=== PATIENT | male | born 1990 | race Caucasian/White ===

== ENCOUNTER 2018-05-08 17:46 | Inpatient (IN) ==
[2018-05-08] MEDS ORDERED: methylPREDNISolone SOD SUC 125 MG/2 ML VIAL IV STA (18:25)
[2018-05-08] MEDS ORDERED: cefTRIAXone 1,000 MG in SODIUM CHLORIDE 0.9% 100 ML IV STA (18:25)
[2018-05-08] MEDS ORDERED: ONDANSETRON 4 MG/2 ML VIAL IV STA (18:25)
[2018-05-08] MEDS ORDERED: SODIUM CHLORIDE 0.9% 500 ML IV STA (18:25)
[2018-05-08] MEDS ORDERED: ALBUTEROL NEB SOLN 5 MG/ML 20 ML/BOTTLE RESP TX SCH (18:30)
[2018-05-08 18:42] LABS: Basophils % 0.1 % (0.0-0.8); Eosinophils % 0.1 % (0.00-10.9); Hemoglobin 13.2 GM/DL (14.0-18.0); Immature Granulocytes % 0.8 %; Immature Granulocytes Absolute 0.11 #; Lymphocytes # 0.6 10*3/uL (1.4-4.0); Lymphocytes % 4.5 % (21.2-54.2); Mean Corpuscular HGB Conc 32.2 GM/DL (32-36); Mean Corpuscular Hemoglobin 29 PG (27-34); Mean Corpuscular Volume 89.1 FL (87-102); Mean Platelet Volume 11.5 FL (9.6-12.0); Monocytes # 0.5 10*3/uL (0.11-0.8); Monocytes % 3.3 % (1.7-12.7); Neutrophils # 12.9 10*3/uL (1.4-7.4); Neutrophils % 91.2 % (38.7-73.9); Platelet Count 285 T/CUMM (130-400); Red Cell Distribution Width 12.8 % (9.3-17.3); White Blood Count 14.1 T/CUMM (4-12)
[2018-05-08 18:54] LABS: ABG Base Excess 4.4 MMOL/L (-2.5-2.5); ABG HCO3 28.3 MMOL/L (20-26); ABG Oxygen Saturation 95.8 % (95-100); ABG PCO2 38.3 MM HG (35-48); ABG PH 7.473 (7.35-7.45); ABG PO2 76.1 MM HG (80-95); ABG TCO2 24.2 MMOL/L (23-27)
[2018-05-08 18:57] LABS: INR 1.1
[2018-05-08 19:04] LABS: Bilirubin,Total 0.6 MG/DL (0.2-1.0); Calcium 8.8 MG/DL (8.5-10.1); Osmolality,Calculated 271.8 MOS/KG (273-304); Potassium 4.4 MMOL/L (3.5-5.1); Total Protein 7.4 G/DL (6.4-8.3)
[2018-05-08] MEDS ORDERED: MAGNESIUM SULF RIDER 2 GM in PREMIX 1 EACH IV STA (19:34)
[2018-05-08] MEDS ORDERED: PIPERACILLIN/TAZOBACTAM 3,375 MG in SODIUM CHLORIDE 0.9% 100 ML IV STA (19:35)
[2018-05-08 19:59] LABS: Lymphocytes 3 % (20-55); Platelet Estimate Normal; Segmented Neutrophils 96 % (50-85)
[2018-05-08 20:00] LABS: Anisocytosis Slight; Hypochromasia Slight
[2018-05-08 20:01] LABS: Total Cells Counted 100
[2018-05-08] MEDS ORDERED: MORPHINE 4 MG/1 ML VIAL IV PRN (23:38)
[2018-05-08] MEDS ORDERED: ONDANSETRON 4 MG/2 ML VIAL IV PRN (23:38)
[2018-05-08] MEDS ORDERED: ALBUTEROL 2.5 MG/3 ML NEB RESP TX PRN (23:38)
[2018-05-08] MEDS: ALBUTEROL/IPRATROPIUM 3 ML NEB RESP TX SCH (23:47)
[2018-05-08] MEDS: SODIUM CHLORIDE 0.9% 1,000 ML IV SCH (23:50)
[2018-05-09] MEDS ORDERED: CEFTAROLINE 600 MG in SODIUM CHLORIDE 0.9% 100 ML IV SCH
[2018-05-09 00:26] LABS: Hematocrit 40.2 VOL% (42.0-52.0); Hemoglobin 12.9 GM/DL (14.0-18.0); Immature Granulocytes % 0.8 %; Immature Granulocytes Absolute 0.06 #; Lymphocytes # 0.3 10*3/uL (1.4-4.0); Lymphocytes % 4.3 % (21.2-54.2); Mean Corpuscular HGB Conc 32.1 GM/DL (32-36); Mean Corpuscular Hemoglobin 29 PG (27-34); Mean Corpuscular Volume 90.3 FL (87-102); Mean Platelet Volume 11.3 FL (9.6-12.0); Monocytes # 0.1 10*3/uL (0.11-0.8); Monocytes % 0.8 % (1.7-12.7); Neutrophils # 7.3 10*3/uL (1.4-7.4); Neutrophils % 94.1 % (38.7-73.9); Platelet Count 278 T/CUMM (130-400); Red Blood Count 4.45 MC/CUMM (3.8-5.5); Red Cell Distribution Width 12.9 % (9.3-17.3); White Blood Count 7.7 T/CUMM (4-12)
[2018-05-09 01:03] LABS: Lymphocytes 4 % (20-55); Segmented Neutrophils 95 % (50-85)
[2018-05-09 01:06] LABS: Platelet Estimate Adequate; Total Cells Counted 100
[2018-05-09] MEDS: methylPREDNISolone SOD SUC 40 MG/1 ML VIAL IV SCH ×5 (01:10→23:48)
[2018-05-09 01:42] LABS: Risk Ratio 5.57; VLDL CHOLESTEROL 12.2 MG/DL
[2018-05-09 03:10] LABS: Alanine Aminotransferase 13 U/L (16-61); Albumin 2.5 G/DL (3.4-5.0); Alkaline Phosphatase 47 U/L (45-117); Aspartate Amino Transferase 12 U/L (0-37); Bilirubin,Total < 0.39 MG/DL (0.2-1.0); Blood Urea Nitrogen 7 MG/DL (7-18); Calcium 8.6 MG/DL (8.5-10.1); Glucose 298 MG/DL (74-106); Osmolality,Calculated 287.4 MOS/KG (273-304); Potassium 3.9 MMOL/L (3.5-5.1); Sodium 140 MMOL/L (136-145); Total Protein 7.4 G/DL (6.4-8.3)
[2018-05-09 03:20] LABS: Apearance,Urine CLEAR (Clear); Bilirubin,Urine Negative (Negative); Blood, Urine Negative (Negative); Glucose,Urine (UA) 150 mg/dL (Negative); Ketones,Urine 20 mg/dL (Negative); Mucus,Urine Occasional /LPF (Occasional); Nitrite,Urine Negative (Negative); Protein,Urine Negative; RBC,Urine 1 /HPF (0-4); Urine Color Yellow (Yellow); Urine Specific Gravity 1.013 (1.001-1.035); Urine Urobilinogen < 2.0 EU/DL (0.2-1.0); WBC,Urine <1 /HPF (0-6)
[2018-05-09] MEDS: ALBUTEROL/IPRATROPIUM 3 ML NEB RESP TX SCH ×6 (03:38→23:15)
[2018-05-09 03:41] LABS: Barbiturates Screen,Urine Negative (Negative); Benzodiazepines Screen,Urine Negative (Negative); Cannabinoid Screen,Urine Positive (Negative); Opiate Screen,Urine Positive (Negative); Phencyclidine Screen,Urine Negative (Negative)
[2018-05-09] MEDS: PIPERACILLIN/TAZOBACTAM 3,375 MG in SODIUM CHLORIDE 0.9% 100 ML IV SCH ×3 (06:01→21:03)
[2018-05-09] MEDS ORDERED: INFLUENZA VIRUS VACCINE 0.5 ML SYRINGE IM ONE (09:00)
[2018-05-09] MEDS: NEBIVOLOL 5 MG TABLET PO SCH (09:06)
[2018-05-09] MEDS: PANTOPRAZOLE 40 MG VIAL IV SCH (09:07)
[2018-05-09] MEDS: ENOXAPARIN 40 MG/0.4 ML SYRINGE SUBCUT SCH (09:07)
[2018-05-09] MEDS: FLUTICASONE 50 MCG NASAL SPRAY 16 GM BOTTLE BOTH NARES SCH (09:11)
[2018-05-09] MEDS: Fluticasone/Vilanterol [Breo Ellipta 200-25 Mcg Inh] INH SCH (09:11)
[2018-05-09] MEDS: DOCUSATE SODIUM 100 MG CAPSULE PO SCH ×2 (09:11→21:03)
[2018-05-09] MEDS ORDERED: VANCOMYCIN INJ 1,500 MG in SODIUM CHLORIDE 0.9% 500 ML IV ONE (12:00)
[2018-05-09] MEDS: SODIUM CHLORIDE 0.9% 1,000 ML IV SCH ×2 (12:56→15:56)
[2018-05-09] MEDS: ALPRAZolam 0.25 MG TABLET PO PRN ×2 (14:34→21:03)
[2018-05-09] MEDS: ACETAMINOPHEN 325 MG TABLET PO PRN (16:48)
[2018-05-09] MEDS: CETIRIZINE 10 MG TABLET PO SCH (21:03)
[2018-05-09] MEDS: VANCOMYCIN INJ 1,250 MG in SODIUM CHLORIDE 0.9% 250 ML IV SCH (23:47)
[2018-05-10] MEDS: ALBUTEROL/IPRATROPIUM 3 ML NEB RESP TX SCH ×6 (03:17→23:22)
[2018-05-10] MEDS: ACETAMINOPHEN 325 MG TABLET PO PRN ×2 (04:23→23:40)
[2018-05-10 05:27] LABS: Basophils % 0.1 % (0.0-0.8); Hematocrit 39.4 VOL% (42.0-52.0); Hemoglobin 12.7 GM/DL (14.0-18.0); Immature Granulocytes % 1.2 %; Immature Granulocytes Absolute 0.11 #; Lymphocytes # 0.7 10*3/uL (1.4-4.0); Lymphocytes % 7.4 % (21.2-54.2); Mean Corpuscular HGB Conc 32.2 GM/DL (32-36); Mean Corpuscular Hemoglobin 29 PG (27-34); Mean Corpuscular Volume 90.4 FL (87-102); Mean Platelet Volume 11.2 FL (9.6-12.0); Monocytes # 0.4 10*3/uL (0.11-0.8); Monocytes % 4.8 % (1.7-12.7); Neutrophils % 86.5 % (38.7-73.9); Platelet Count 284 T/CUMM (130-400); Red Blood Count 4.36 MC/CUMM (3.8-5.5); Red Cell Distribution Width 12.8 % (9.3-17.3); White Blood Count 9.2 T/CUMM (4-12)
[2018-05-10] MEDS: PIPERACILLIN/TAZOBACTAM 3,375 MG in SODIUM CHLORIDE 0.9% 100 ML IV SCH ×3 (05:27→21:29)
[2018-05-10] MEDS: SODIUM CHLORIDE 0.9% 1,000 ML IV SCH ×2 (05:29→19:40)
[2018-05-10] MEDS: methylPREDNISolone SOD SUC 40 MG/1 ML VIAL IV SCH ×4 (05:29→23:24)
[2018-05-10 05:47] LABS: Calcium 8.6 MG/DL (8.5-10.1); Osmolality,Calculated 281.1 MOS/KG (273-304); Potassium 3.8 MMOL/L (3.5-5.1)
[2018-05-10] MEDS: PANTOPRAZOLE 40 MG VIAL IV SCH (08:54)
[2018-05-10] MEDS: NEBIVOLOL 5 MG TABLET PO SCH (08:54)
[2018-05-10] MEDS: ALPRAZolam 0.25 MG TABLET PO PRN ×2 (08:54→21:28)
[2018-05-10] MEDS: ENOXAPARIN 40 MG/0.4 ML SYRINGE SUBCUT SCH (08:54)
[2018-05-10] MEDS: DOCUSATE SODIUM 100 MG CAPSULE PO SCH ×2 (08:55→20:46)
[2018-05-10] MEDS: FLUTICASONE 50 MCG NASAL SPRAY 16 GM BOTTLE BOTH NARES SCH (08:57)
[2018-05-10] MEDS: Fluticasone/Vilanterol [Breo Ellipta 200-25 Mcg Inh] INH SCH (08:57)
[2018-05-10] MEDS: VANCOMYCIN INJ 1,250 MG in SODIUM CHLORIDE 0.9% 250 ML IV SCH ×2 (12:44→23:24)
[2018-05-10] MEDS: CETIRIZINE 10 MG TABLET PO SCH (21:28)
[2018-05-11] MEDS ORDERED: PHENOL 1.4% THROAT SPRAY 177 ML BOTTLE PO PRN (00:20)
[2018-05-11] MEDS: BENZONATATE 100 MG CAPSULE PO PRN ×2 (00:42→21:37)
[2018-05-11] MEDS: SODIUM CHLORIDE 0.9% 1,000 ML IV SCH ×2 (01:12→09:30)
[2018-05-11] MEDS: ALBUTEROL/IPRATROPIUM 3 ML NEB RESP TX SCH ×6 (02:28→23:11)
[2018-05-11 05:15] LABS: Basophils % 0.1 % (0.0-0.8); Hematocrit 37.6 VOL% (42.0-52.0); Hemoglobin 11.9 GM/DL (14.0-18.0); Immature Granulocytes % 1.3 %; Immature Granulocytes Absolute 0.18 #; Lymphocytes # 0.7 10*3/uL (1.4-4.0); Mean Corpuscular HGB Conc 31.6 GM/DL (32-36); Mean Corpuscular Hemoglobin 29 PG (27-34); Mean Platelet Volume 11.6 FL (9.6-12.0); Monocytes # 0.8 10*3/uL (0.11-0.8); Monocytes % 5.6 % (1.7-12.7); Neutrophils # 11.8 10*3/uL (1.4-7.4); Platelet Count 276 T/CUMM (130-400); Red Blood Count 4.18 MC/CUMM (3.8-5.5); Red Cell Distribution Width 12.8 % (9.3-17.3); White Blood Count 13.4 T/CUMM (4-12)
[2018-05-11 05:33] LABS: Calcium 8.1 MG/DL (8.5-10.1); Osmolality,Calculated 278.4 MOS/KG (273-304); Potassium 3.8 MMOL/L (3.5-5.1)
[2018-05-11] MEDS: methylPREDNISolone SOD SUC 40 MG/1 ML VIAL IV SCH ×3 (06:15→19:11)
[2018-05-11] MEDS: PIPERACILLIN/TAZOBACTAM 3,375 MG in SODIUM CHLORIDE 0.9% 100 ML IV SCH ×2 (06:16→14:19)
[2018-05-11] MEDS: ENOXAPARIN 40 MG/0.4 ML SYRINGE SUBCUT SCH (09:23)
[2018-05-11] MEDS: ALPRAZolam 0.25 MG TABLET PO PRN ×2 (09:24→21:37)
[2018-05-11] MEDS: NEBIVOLOL 5 MG TABLET PO SCH (09:24)
[2018-05-11] MEDS: PANTOPRAZOLE 40 MG VIAL IV SCH (09:24)
[2018-05-11] MEDS: FLUTICASONE 50 MCG NASAL SPRAY 16 GM BOTTLE BOTH NARES SCH (09:25)
[2018-05-11] MEDS: DOCUSATE SODIUM 100 MG CAPSULE PO SCH (09:25)
[2018-05-11] MEDS: Fluticasone/Vilanterol [Breo Ellipta 200-25 Mcg Inh] INH SCH (09:25)
[2018-05-11] MEDS: VANCOMYCIN INJ 1,250 MG in SODIUM CHLORIDE 0.9% 250 ML IV SCH ×2 (13:10→21:29)
[2018-05-11 20:40] LABS: Mycoplasma pneumoniae PCR Negative; Specimen Source SPUTUM
[2018-05-11] MEDS: CETIRIZINE 10 MG TABLET PO SCH (21:40)
[2018-05-12] MEDS: PIPERACILLIN/TAZOBACTAM 3,375 MG in SODIUM CHLORIDE 0.9% 100 ML IV SCH ×3 (01:16→18:37)
[2018-05-12] MEDS: ALBUTEROL/IPRATROPIUM 3 ML NEB RESP TX SCH ×5 (03:21→19:37)
[2018-05-12] MEDS: methylPREDNISolone SOD SUC 40 MG/1 ML VIAL IV SCH ×4 (04:03→14:02)
[2018-05-12] MEDS: VANCOMYCIN INJ 1,250 MG in SODIUM CHLORIDE 0.9% 250 ML IV SCH ×2 (04:04→14:03)
[2018-05-12 06:00] LABS: Basophils % 0.1 % (0.0-0.8); Eosinophils % 0.2 % (0.00-10.9); Hematocrit 37.7 VOL% (42.0-52.0); Hemoglobin 12.2 GM/DL (14.0-18.0); Immature Granulocytes % 2.1 %; Immature Granulocytes Absolute 0.23 #; Lymphocytes # 0.9 10*3/uL (1.4-4.0); Lymphocytes % 7.9 % (21.2-54.2); Mean Corpuscular HGB Conc 32.4 GM/DL (32-36); Mean Corpuscular Hemoglobin 29 PG (27-34); Mean Corpuscular Volume 88.9 FL (87-102); Monocytes # 0.9 10*3/uL (0.11-0.8); Monocytes % 8.3 % (1.7-12.7); Neutrophils # 8.9 10*3/uL (1.4-7.4); Neutrophils % 81.4 % (38.7-73.9); Platelet Count 276 T/CUMM (130-400); Red Blood Count 4.24 MC/CUMM (3.8-5.5); Red Cell Distribution Width 12.9 % (9.3-17.3)
[2018-05-12 06:50] LABS: Calcium 8.2 MG/DL (8.5-10.1); Osmolality,Calculated 275.5 MOS/KG (273-304); Potassium 3.6 MMOL/L (3.5-5.1)
[2018-05-12] MEDS: SODIUM CHLORIDE 0.9% 1,000 ML IV SCH (07:44)
[2018-05-12 07:56] LABS: Pneumocystis jiroveci Result Negative (Negative); Pneumocystis jiroveci Source SPUTUM
[2018-05-12] MEDS: ENOXAPARIN 40 MG/0.4 ML SYRINGE SUBCUT SCH (09:27)
[2018-05-12] MEDS: ALPRAZolam 0.25 MG TABLET PO PRN ×2 (09:27→21:59)
[2018-05-12] MEDS: NEBIVOLOL 5 MG TABLET PO SCH (09:27)
[2018-05-12] MEDS: PANTOPRAZOLE 40 MG VIAL IV SCH (09:27)
[2018-05-12] MEDS: FLUTICASONE 50 MCG NASAL SPRAY 16 GM BOTTLE BOTH NARES SCH (09:28)
[2018-05-12] MEDS: Fluticasone/Vilanterol [Breo Ellipta 200-25 Mcg Inh] INH SCH (09:28)
[2018-05-12 09:43] LABS: HIV Antigen/Antibody Result Reactive (Nonreactive)
[2018-05-12] MEDS ORDERED: hydrALAZINE 20 MG/1 ML VIAL IV PRN (13:15)
[2018-05-12] MEDS: CETIRIZINE 10 MG TABLET PO SCH (21:59)
[2018-05-13] MEDS: ALBUTEROL/IPRATROPIUM 3 ML NEB RESP TX SCH ×7 (00:19→23:10)
[2018-05-13] MEDS: VANCOMYCIN INJ 1,250 MG in SODIUM CHLORIDE 0.9% 250 ML IV SCH ×3 (01:17→18:24)
[2018-05-13] MEDS: methylPREDNISolone SOD SUC 40 MG/1 ML VIAL IV SCH ×2 (01:22→16:45)
[2018-05-13] MEDS: PIPERACILLIN/TAZOBACTAM 3,375 MG in SODIUM CHLORIDE 0.9% 100 ML IV SCH ×4 (03:30→22:03)
[2018-05-13] MEDS: BENZONATATE 100 MG CAPSULE PO PRN ×2 (05:56→22:10)
[2018-05-13] MEDS: FLUTICASONE 50 MCG NASAL SPRAY 16 GM BOTTLE BOTH NARES SCH (09:35)
[2018-05-13] MEDS: NEBIVOLOL 5 MG TABLET PO SCH (09:36)
[2018-05-13] MEDS: ENOXAPARIN 40 MG/0.4 ML SYRINGE SUBCUT SCH (09:36)
[2018-05-13] MEDS: Fluticasone/Vilanterol [Breo Ellipta 200-25 Mcg Inh] INH SCH (09:36)
[2018-05-13] MEDS: PANTOPRAZOLE 40 MG VIAL IV SCH (09:36)
[2018-05-13] MEDS: ALPRAZolam 0.25 MG TABLET PO PRN (09:39)
[2018-05-13 14:39] LABS: Hepatitis A Ab IgM Quant 0.24 Index; Hepatitis A Ab IgM Result Negative (Negative); Hepatitis B Core IgM Quant 0.16 Index; Hepatitis B Core IgM Result Negative (Negative); Hepatitis B Surface Ag Quant < 0.10 Index; Hepatitis B Surface Ag Result Negative (Negative); Hepatitis C Virus Ab Quant 0.05 Index; Hepatitis C Virus Ab Result Negative (Negative)
[2018-05-13 16:10] LABS: Alternaria tenuis/alternat IgG 3.6 mcg/mL (<12.0); Aspergillus fumigatus IgG 53.4 mcg/mL (<46.0); Aureobasidium pullulans IgG 2.3 mcg/mL (<18.0); Micropolyspora faeni IgG <2.0 mcg/mL (<5.0); Penicillium Chrysogenum IgG 29.9 mcg/mL (<22.0); Phoma betae IgG 4.6 mcg/mL (<8.0); Thermoactinomyces vulgaris IgG 2.1 mcg/mL (<13.0)
[2018-05-13] MEDS: ACETAMINOPHEN 325 MG TABLET PO PRN (19:50)
[2018-05-13] MEDS: CETIRIZINE 10 MG TABLET PO SCH (22:03)
[2018-05-13] MEDS: busPIRone 5 MG TABLET PO SCH (22:03)
[2018-05-14] MEDS: methylPREDNISolone SOD SUC 40 MG/1 ML VIAL IV SCH ×2 (02:13→15:16)
[2018-05-14] MEDS: VANCOMYCIN INJ 1,250 MG in SODIUM CHLORIDE 0.9% 250 ML IV SCH ×3 (02:14→17:52)
[2018-05-14] MEDS: ALBUTEROL/IPRATROPIUM 3 ML NEB RESP TX SCH ×6 (03:20→23:09)
[2018-05-14] MEDS: PIPERACILLIN/TAZOBACTAM 3,375 MG in SODIUM CHLORIDE 0.9% 100 ML IV SCH ×3 (05:18→22:38)
[2018-05-14] MEDS: busPIRone 5 MG TABLET PO SCH ×3 (09:55→22:38)
[2018-05-14] MEDS: NEBIVOLOL 5 MG TABLET PO SCH (09:55)
[2018-05-14] MEDS: PANTOPRAZOLE 40 MG VIAL IV SCH (09:55)
[2018-05-14] MEDS: ENOXAPARIN 40 MG/0.4 ML SYRINGE SUBCUT SCH (09:56)
[2018-05-14] MEDS: Fluticasone/Vilanterol [Breo Ellipta 200-25 Mcg Inh] INH SCH (09:56)
[2018-05-14] MEDS: FLUTICASONE 50 MCG NASAL SPRAY 16 GM BOTTLE BOTH NARES SCH (09:56)
[2018-05-14] MEDS ORDERED: diphenhydrAMINE 50 MG/1 ML VIAL IV PRN (10:59)
[2018-05-14] MEDS ORDERED: SULFAMETHOX/TRIMETHOPRIM 800-160 MG TABLET PO ONE (11:00)
[2018-05-14] MEDS ORDERED: methylPREDNISolone SOD SUC 125 MG/2 ML VIAL IV PRN (11:04)
[2018-05-14] MEDS ORDERED: EPINEPHrine 1 MG/ML VIAL ONE (12:17)
[2018-05-14] MEDS: BENZONATATE 100 MG CAPSULE PO PRN ×2 (15:18→22:37)
[2018-05-14] MEDS: CETIRIZINE 10 MG TABLET PO SCH (22:37)
[2018-05-14] MEDS: SULFAMETHOX/TRIMETHOPRIM 800-160 MG TABLET PO SCH (22:40)
[2018-05-15] MEDS: ALBUTEROL/IPRATROPIUM 3 ML NEB RESP TX SCH ×5 (03:30→20:45)
[2018-05-15] MEDS: VANCOMYCIN INJ 1,250 MG in SODIUM CHLORIDE 0.9% 250 ML IV SCH ×2 (03:33→11:42)
[2018-05-15] MEDS: SULFAMETHOX/TRIMETHOPRIM 800-160 MG TABLET PO SCH ×3 (06:58→21:08)
[2018-05-15] MEDS: PIPERACILLIN/TAZOBACTAM 3,375 MG in SODIUM CHLORIDE 0.9% 100 ML IV SCH ×3 (06:58→21:09)
[2018-05-15] MEDS: predniSONE 20 MG TABLET PO SCH (08:36)
[2018-05-15] MEDS: NEBIVOLOL 5 MG TABLET PO SCH (08:37)
[2018-05-15] MEDS: busPIRone 5 MG TABLET PO SCH ×3 (08:37→21:08)
[2018-05-15] MEDS: PANTOPRAZOLE 40 MG VIAL IV SCH (08:38)
[2018-05-15] MEDS: FLUTICASONE 50 MCG NASAL SPRAY 16 GM BOTTLE BOTH NARES SCH (08:39)
[2018-05-15] MEDS: ACETAMINOPHEN 325 MG TABLET PO PRN (08:45)
[2018-05-15] MEDS: BENZONATATE 100 MG CAPSULE PO PRN (08:45)
[2018-05-15] MEDS: ENOXAPARIN 40 MG/0.4 ML SYRINGE SUBCUT SCH (08:48)
[2018-05-15] MEDS: Fluticasone/Vilanterol [Breo Ellipta 200-25 Mcg Inh] INH SCH (09:45)
[2018-05-15] MEDS: ALPRAZolam 0.25 MG TABLET PO PRN ×2 (14:26→21:08)
[2018-05-15 15:36] LABS: TB2 Ag Minus Result 0 IU/mL
[2018-05-15 15:51] LABS: % CD4 (T Cells) 1 % (32-64); % CD8 (T Cells) 42 % (18-40); 4/8 Ratio 0 (>=0.9)
[2018-05-15 19:21] LABS: HIV 1 RNA Quant Reflex to Geno 85000 copies/mL (Undetected)
[2018-05-15] MEDS: CETIRIZINE 10 MG TABLET PO SCH (21:08)
[2018-05-16] MEDS: ALBUTEROL/IPRATROPIUM 3 ML NEB RESP TX SCH ×7 (01:29→23:55)
[2018-05-16 03:51] LABS: Toxoplasma IgG Value < 3 IU/mL
[2018-05-16 05:44] LABS: Basophils % 0.2 % (0.0-0.8); Eosinophils # 0.4 10*3/uL (0.0-0.87); Eosinophils % 2.2 % (0.00-10.9); Hematocrit 40.3 VOL% (42.0-52.0); Immature Granulocytes % 2.7 %; Immature Granulocytes Absolute 0.46 #; Lymphocytes # 1.3 10*3/uL (1.4-4.0); Lymphocytes % 7.3 % (21.2-54.2); Mean Corpuscular HGB Conc 32.3 GM/DL (32-36); Mean Corpuscular Hemoglobin 29 PG (27-34); Mean Platelet Volume 11.1 FL (9.6-12.0); Monocytes # 1.2 10*3/uL (0.11-0.8); Monocytes % 7.2 % (1.7-12.7); Neutrophils # 13.9 10*3/uL (1.4-7.4); Neutrophils % 80.4 % (38.7-73.9); Platelet Count 281 T/CUMM (130-400); Red Blood Count 4.48 MC/CUMM (3.8-5.5); Red Cell Distribution Width 14.3 % (9.3-17.3); White Blood Count 17.3 T/CUMM (4-12)
[2018-05-16 06:07] LABS: Calcium 8.2 MG/DL (8.5-10.1); Osmolality,Calculated 269.1 MOS/KG (273-304); Potassium 3.7 MMOL/L (3.5-5.1)
[2018-05-16] MEDS: SULFAMETHOX/TRIMETHOPRIM 800-160 MG TABLET PO SCH ×3 (06:20→21:00)
[2018-05-16] MEDS: PIPERACILLIN/TAZOBACTAM 3,375 MG in SODIUM CHLORIDE 0.9% 100 ML IV SCH ×2 (06:20→14:43)
[2018-05-16] MEDS: PANTOPRAZOLE 40 MG VIAL IV SCH (08:43)
[2018-05-16] MEDS: NEBIVOLOL 5 MG TABLET PO SCH (08:44)
[2018-05-16] MEDS: predniSONE 20 MG TABLET PO SCH (08:44)
[2018-05-16] MEDS: busPIRone 5 MG TABLET PO SCH ×3 (08:44→21:00)
[2018-05-16] MEDS: FLUTICASONE 50 MCG NASAL SPRAY 16 GM BOTTLE BOTH NARES SCH (08:51)
[2018-05-16] MEDS: ENOXAPARIN 40 MG/0.4 ML SYRINGE SUBCUT SCH (08:52)
[2018-05-16] MEDS: Fluticasone/Vilanterol [Breo Ellipta 200-25 Mcg Inh] INH SCH (08:52)
[2018-05-16] MEDS ORDERED: AZITHROMYCIN 250 MG TABLET PO SCH (09:00)
[2018-05-16] MEDS: ALPRAZolam 0.25 MG TABLET PO PRN ×2 (14:47→21:19)
[2018-05-16] MEDS: CETIRIZINE 10 MG TABLET PO SCH (21:00)
[2018-05-17] MEDS: ALBUTEROL/IPRATROPIUM 3 ML NEB RESP TX SCH ×6 (03:43→23:30)
[2018-05-17] MEDS: SULFAMETHOX/TRIMETHOPRIM 800-160 MG TABLET PO SCH ×3 (05:49→21:46)
[2018-05-17] MEDS: ENOXAPARIN 40 MG/0.4 ML SYRINGE SUBCUT SCH (08:01)
[2018-05-17] MEDS: PANTOPRAZOLE 40 MG VIAL IV SCH (08:04)
[2018-05-17] MEDS: predniSONE 20 MG TABLET PO SCH (08:05)
[2018-05-17] MEDS: NEBIVOLOL 5 MG TABLET PO SCH (08:05)
[2018-05-17] MEDS: busPIRone 5 MG TABLET PO SCH ×3 (08:11→21:47)
[2018-05-17] MEDS: ACETAMINOPHEN 325 MG TABLET PO PRN ×2 (08:40→14:18)
[2018-05-17] MEDS: ALPRAZolam 0.25 MG TABLET PO PRN ×2 (09:50→21:47)
[2018-05-17] MEDS: Fluticasone/Vilanterol [Breo Ellipta 200-25 Mcg Inh] INH SCH (09:50)
[2018-05-17] MEDS: FLUTICASONE 50 MCG NASAL SPRAY 16 GM BOTTLE BOTH NARES SCH (09:51)
[2018-05-17] MEDS: BENZONATATE 100 MG CAPSULE PO PRN (17:40)
[2018-05-17] MEDS: CETIRIZINE 10 MG TABLET PO SCH (21:47)
[2018-05-18] MEDS: ACETAMINOPHEN 325 MG TABLET PO PRN ×2 (01:57→22:10)
[2018-05-18] MEDS: ALBUTEROL/IPRATROPIUM 3 ML NEB RESP TX SCH ×6 (03:21→22:37)
[2018-05-18] MEDS: SULFAMETHOX/TRIMETHOPRIM 800-160 MG TABLET PO SCH ×3 (05:48→20:24)
[2018-05-18 06:06] LABS: Calcium 8.4 MG/DL (8.5-10.1); Osmolality,Calculated 260.8 MOS/KG (273-304); Potassium 3.8 MMOL/L (3.5-5.1)
[2018-05-18] MEDS: ALPRAZolam 0.25 MG TABLET PO PRN ×3 (07:25→20:25)
[2018-05-18] MEDS: NEBIVOLOL 5 MG TABLET PO SCH (08:40)
[2018-05-18] MEDS: busPIRone 5 MG TABLET PO SCH ×3 (08:40→20:25)
[2018-05-18] MEDS: PANTOPRAZOLE 40 MG VIAL IV SCH (08:41)
[2018-05-18] MEDS: predniSONE 20 MG TABLET PO SCH (08:41)
[2018-05-18] MEDS: FLUTICASONE 50 MCG NASAL SPRAY 16 GM BOTTLE BOTH NARES SCH (08:47)
[2018-05-18] MEDS: Fluticasone/Vilanterol [Breo Ellipta 200-25 Mcg Inh] INH SCH (08:47)
[2018-05-18] MEDS: ENOXAPARIN 40 MG/0.4 ML SYRINGE SUBCUT SCH (08:48)
[2018-05-18] MEDS: ACETYLCYSTEINE 20% 800 MG/4 ML VIAL RESP TX SCH (19:21)
[2018-05-18] MEDS: CETIRIZINE 10 MG TABLET PO SCH (20:25)
[2018-05-19] MEDS: ALBUTEROL/IPRATROPIUM 3 ML NEB RESP TX SCH ×5 (02:52→19:02)
[2018-05-19] MEDS: SULFAMETHOX/TRIMETHOPRIM 800-160 MG TABLET PO SCH ×3 (03:36→14:33)
[2018-05-19] MEDS: ALPRAZolam 0.25 MG TABLET PO PRN ×3 (06:11→20:38)
[2018-05-19] MEDS: ACETYLCYSTEINE 20% 800 MG/4 ML VIAL RESP TX SCH ×2 (08:20→19:02)
[2018-05-19] MEDS: busPIRone 5 MG TABLET PO SCH ×3 (08:56→20:37)
[2018-05-19] MEDS: predniSONE 20 MG TABLET PO SCH (08:56)
[2018-05-19] MEDS: NEBIVOLOL 5 MG TABLET PO SCH (08:56)
[2018-05-19] MEDS: PANTOPRAZOLE 40 MG VIAL IV SCH (08:57)
[2018-05-19] MEDS: Fluticasone/Vilanterol [Breo Ellipta 200-25 Mcg Inh] INH SCH (08:57)
[2018-05-19] MEDS: ENOXAPARIN 40 MG/0.4 ML SYRINGE SUBCUT SCH (08:58)
[2018-05-19] MEDS: FLUTICASONE 50 MCG NASAL SPRAY 16 GM BOTTLE BOTH NARES SCH (08:58)
[2018-05-19] MEDS ORDERED: SODIUM CHLORIDE 0.9% 1,000 ML IV SCH (09:00)
[2018-05-19] MEDS: BENZONATATE 100 MG CAPSULE PO PRN (20:37)
[2018-05-19] MEDS: CETIRIZINE 10 MG TABLET PO SCH (20:37)
[2018-05-19 23:37] VITALS: BP 118/55
[2018-05-20 12:08] LABS: HIV-1 Genotypic PR-RT Drug Res INTERP; Tipranavir + Ritonavir SUSC
== END 2018-05-19 21:00 | disposition hospice, home (50) | DRG 974 ==
LOC: N.ED 17:46 → N.EDINP 22:25 → N.CC 23:03 → N.5E 05-11 16:06
PROVIDERS: ADMIT Family Medicine; ATTEND Family Medicine